=== PATIENT | female | born 1965 | race Caucasian/White ===

== ENCOUNTER 2022-09-29 19:32 | Emergency (ER) | payer OTHER, SELFPAY ==
[2022-09-29 19:50] VITALS: BP 135/91; PULSE 101; RESP 18; TEMP 36.7; O2SAT 99
--- NOTE | 2022-09-29 19:56 | ED.SKABFB ---
HPI - Skin/Abscess/Foreign Bdy General Chief complaint: Skin/Abscess/Foreign Body Stated complaint: sores in nose Time Seen by Provider: 09/29/22 19:51 Source: patient and RN notes reviewed Mode of arrival: ambulatory Limitations: no limitations History of Present Illness HPI narrative: Patient presents today complaining of sores inside her left nostril x1 month that have now spread to her lips. The sores in her nose are painful to touch. She does clean her nostril out in the mornings and has crusting drainage. She has been trying Neosporin without relief. Related Data Home Medications Medication Instructions Recorded Confirmed diazepam 10 mg tablet 10 mg PO DAILY 09/29/22 09/29/22 estradiol 1 mg tablet 1 mg PO DAILY 09/29/22 09/29/22 metoprolol succinate 25 mg 25 mg PO DAILY 09/29/22 09/29/22 tablet,extended release 24 hr progesterone micronized 200 mg 200 mg PO DAILY 09/29/22 09/29/22 capsule trazodone 100 mg tablet 100 mg PO HS PRN Sleep 09/29/22 09/29/22 Allergies Allergy/AdvReac Type Severity Reaction Status Date / Time No Known Allergies Allergy Unknown Verified 09/29/22 19:58 Review of Systems Review of Systems: CONSTITUTIONAL: Denies body aches, fever, chills, or sweats. EYES: Denies visual changes, redness, or discharge. ENT: Denies rhinorrhea, congestion, sore throat, or otalgia.+ sores in left nostril and around lips CARDIOVASCULAR: Denies chest pain, palpitations, or edema. RESPIRATORY: Denies cough or dyspnea. GASTROINTESTINAL: Denies abdominal pain, nausea, vomiting, or diarrhea. GENITOURINARY: Denies dysuria or hematuria. SKIN: Denies rash, itching, or wounds. MUSCULOSKELETAL: Denies back pain, joint pain, or myalgia. NEUROLOGIC: Denies headache, numbness, tingling, or weakness. PSYCH: Denies depression or anxiety. PMFSH Comments At time of signature, I have reviewed and agree with nursing past medical, surgical, social and family history unless otherwise noted. Please see nursing chart for further information. There is no relevant family history pertinent to the presenting complaint Exam Narrative: GENERAL: Well-appearing, well-nourished, and in no acute distress. HEAD: Normocephalic, atraumatic. EYES: EOMI. No redness or drainage. Conjunctivae normal. ENT: Mucous membranes pink and moist. Left nare: Multiple tiny pustules to the septum surrounded in erythema. No rhinorrhea. Few tiny pustules of the upper and lower vermilion border with erythematous bases. No induration or swelling of the lips noted. NECK: Normal AROM. CHEST: No respiratory distress. EXTREMITIES: Normal range of motion. No edema. SKIN: Warm, dry, no rash. Capillary refill normal. Normal skin turgor. NEURO: No focal deficits. Alert and oriented x3. Gait steady. PSYCH: Normal affect. No signs of depression or anxiety. Course Course Level of Care: Express Care Visit Vital Signs Vital signs: Vital Signs Temperature 98.0 F 09/29/22 19:50 Pulse Rate 101 H 09/29/22 19:50 Respiratory Rate 18 09/29/22 19:50 Blood Pressure 135/91 H 09/29/22 19:50 Pulse Oximetry 99 09/29/22 19:50 Oxygen Delivery Room Air 09/29/22 19:50 Temperature 98.0 F 09/29/22 19:50 Pulse Rate 101 H 09/29/22 19:50 Respiratory Rate 18 09/29/22 19:50 Blood Pressure 135/91 H 09/29/22 19:50 Pulse Oximetry 99 09/29/22 19:50 Oxygen Delivery Room Air 09/29/22 19:50 Reviewed. Pt has been instructed to follow up with her PCP regarding her elevated blood pressure today. MDM - Skin/Abscess/Foreign Bdy MDM Narrative Medical decision making narrative: Exam consistent with impetigo. Will treat with cephalexin and mupirocin ointment. Anticipatory guidance given. Differential Diagnosis Differential diagnosis: Likely abscess of skin or subcutaneous tissue, cellulitis and impetigo Critical Care Time Critical Care Time Critical Care Time: No Discharge Plan Discharge Clinical Impression: Impet
== END 2022-09-29 20:05 | disposition home or self-care (01) ==
PROVIDERS: Emergency Provider Nurse Practitioner
DX: L01.00 Impetigo, unspecified (principal); Z95.2 Presence of prosthetic heart valve
CPT/HCPCS: 99213; G0463

== ENCOUNTER 2025-01-11 02:27 | Day surgery (SDC) | payer OTHER, SELFPAY ==
[2025-01-01 12:21] VITALS: BMI 28.4
--- OUTSIDE RECORDS SUMMARY | 2025-01-11 02:30 | XMS_ITS | Clinical Summary ---
Author Organization [facility] Address [address] [facility] [place] [address] Phone Care Team Providers Care Hand Packager Name Role Phone Jose Adorno MD Primary Care Provider [phone] Allergies No known active allergies Medications conjugated estrogens (PREMARIN) 0.3 mg tablet Take 0.3 mg by mouth daily. Active progesterone micronized (PROMETRIUM) 100 mg Capsule Take by mouth daily. Active doxycycline hyclate (VIBRAMYCIN) 100 mg capsule Take 100 mg by mouth daily. Active traZODone (DESYREL) 100 mg tablet Take 100 mg by mouth daily at bedtime. Active cholecalciferol, vitamin D3, (Vitamin D3) 5,000 unit Take 400 Units by mouth daily. Active diazePAM (VALIUM) 10 mg tablet Take 10 mg by mouth 1 time daily as needed. As need only Active Active Problems No known active problems Family History Medical History Relation Name Comments No Known Problems Brother No Known Problems Father No Known Problems Mother Relation Name Status Comments Brother Alive Father Alive Mother Alive Social History Tobacco Use Types Packs/Day Years Used Date Smoking Tobacco: Never Smokeless Tobacco: Never Alcohol Use Standard Drinks/Week Comments Yes 0 (1 standard drink = 0.6 oz pur e alcohol) Comments Unknown Sex and Gender Information Value Date Recorded Sex Assigned at Not on file Legal Sex Female 12:42 PM CDT Gender Identity Not on file Sexual Orientation Not on file Last Filed Vital Signs Vital Sign Reading Time Taken Comments Blood Pressure 155/90 10/12/2019 9:45 AM CDT Pulse 68 10/12/2019 9:45 AM CDT Temperature 36.7 C (98.1 F) 10/02/2019 1:16 PM CDT Respiratory Rate - - Oxygen Saturation 97% 10/02/2019 1:16 PM CDT Inhaled Oxygen Concentration - - Weight 74.4 kg (164 lb) 10/12/2019 9:45 AM CDT Height 165.1 cm (5' 5) 10/12/2019 9:45 AM CDT Body Mass Index 27.29 10/12/2019 9:45 AM CDT Plan of Treatment Health Maintenance Due Date Last Done Comments DTAP/TDAP/TD VACCINES (1 - Tdap) 1983 HPV/Cotest (21-29) 1985 CERVICAL CANCER SCREENING 1994 HPV/Cotest (30-65) 1994 PAP SMEAR 1994 BREAST CANCER SCREENING 2004 COLORECTAL SCREENING 2009 Colorectal Cancer Screening 2009 FIT-DNA Q 3 years 2009 FIT/FOBT Q 1 year 2009 Flex Sig/CT Colonography Q 5 years 2009 ZOSTER VACCINE (1 of 2) 2014 Preventative Visit- Commercial 05/02/2024 INFLUENZA VACCINE (#1) 2024 RSV VACCINE (60+ or ) (1 - 1-dose 75+ series) 2039 HEPATITIS B VACCINES Aged Out No long er eligible based on patient's age to complete this topic Insurance [employer] OPEN ACCESS Care Teams Hand Packager Relationship Specialty Start Date End Date Jose Adorno MD [address] [place] [address] [address] [place] [address] PCP - General Interventional Cardiology 10/02/19
--- OUTSIDE RECORDS SUMMARY | 2025-01-11 02:30 | XMS_ITS | Clinical Summary ---
Author Organization [facility] Address [address] [place] [address] Care Team Providers Care Saxophone Assembler Name Role Phone Sabrina Ogden MD Unavailable [phone] Jose Manuel Perez Primary Care Provider [phone] Allergies No known active allergies Medications aspirin EC 81 MG tabletIndications: Anticoagulant Therapy Take 1 tablet (81 mg total) by mouth daily. Indications: Anticoagulant Therapy 11/11/19 20 Active metoprolol succinate ER (TOPROL XL) 25 MG 24 hr tabletIndications: Hypertension Take 1 tablet (25 mg total) by mouth daily. Indications: High Blood Pressure Hold for HR <60 11/11/19 20 Active progesterone (PROMETRIUM) 200 MG capsule Take 1 capsule (200 mg total) by mouth nightly at bedtime. 01/19/20 24 Active Ergocalciferol (VITAMIN D OR) Take 125 mcg by mouth daily. Active estradiol (ESTRACE) 1 MG tabletIndications: Postmenopausal TAKE 1 TABLET BY MOUTH EVERY DAY IN THE MORNING 90 tablet 10/12/19 25 Active traZODone (DESYREL) 100 MG tabletIndications: Primary insomnia TAKE 2 TABLETS BY MOUTH AT BEDTIME FOR SLEEP 180 tablet 10/27/19 25 Active omeprazole (PRILOSEC) 20 MG capsuleIndications :Gastroesophageal reflux disease, unspecified whether esophagitis present TAKE 2 CAPSULES BY MOUTH EVERY DAY 180 capsule 1 10/27/19 25 Active rosuvastatin (CRESTOR) 5 MG tabletIndications: Mixed hyperlipidemia Take 1 tablet (5 mg total) by mouth daily. 30 tablet 06/27/20 25 Active doxycycline hyclate (VIBRAMYCIN) 100 MG capsuleIndications :Acne vulgaris Take 1 capsule (100 mg total) by mouth daily. For acne breakouts 10 capsule 11/28/19 Active Active Problems Problem Noted Date Diagnosed Date Osteoarthritis of left knee 07/21/2023 Hypertension 11/01/2019 Aortic valve replaced 10/31/2019 Dyslipidemia 04/08/2017 Migraine with aura 01/26/2012 Resolved Problems Problem Noted Date Diagnosed Date Resolved Date Encounter for screening colonoscopy 07/25/2023 08/01/2023 Encounter for screening colonoscopy 07/25/2023 09/05/2023 Encounter for screening colonoscopy 07/25/2023 09/12/2023 Severe aortic stenosis 01/04/201403/01 Overview (03/01/2024): Added automatically from request for surgery [id number] Encounters Date Type Department Care Team Description 01/09/2025 Orders Only [address] [place] [address] Jose Manuel Perez FNP 01/04/[address] [address] Simon Akers MD Surgical Clearance ([facility] requesting cardiac clearance) 11/28/2024 12:20 PM CDT Office Visit [address] [place] [address] Jose Manuel Perez FNP Sinus Problem (Sinus and chest congestion started over the weekend, pt states yesterday she began not being able to taste or smell ); Sore Throat (Since the weekend ); Cough 11/28/2024 Travel 11/27/2024 Orders Only [address] [place] [address] Jose Manuel Perez FNP 11/26/[address] [place] [address] Jose Manuel Perez FNP Medication 10/29/2024 Scan [facility] Scanned, [facility] 10/26/2024 Telephone [facility] [address] [place] [address] Jose Manuel Perez FNP Medication Request 10/17/2024 Telephone [facility], [address] [address] Simon Akers MD Letter 10/11/2024 Telephone [facility] [address] [place] [address] Jose Manuel Perez FNP Results from Last 3 Months Immunizations Immunization Administration Dates Next Due Flucelvax 6 Months+ (Prefill ed Syringe) 03/16/2017 Influenza (Generic) 02/06/2024,02/13/2016,2014 Influenza Adult (Generic) 03/11/2023,10/2020,05/09/2020,2018,02/03/2018,03/16/2017 PFIZER COVID-19 (ORIGINAL FORMULATION, PURPLE CAP) mRNA, LNP-S, PF, 30 MCG/0.3 ML DOSE 07/01/2020 Tdap (Generic) 02/03/2018 Family History Medical History Relation Comments Heart Disease Father Hypertension Father Breast Cancer Mother incidental findi ng recently, pt is in their 80s Kidney Disease Mother Relation Status Comments Father Alive Mother Alive Social History Tobacco Use Types Packs/Day Years Used Date Smoking Tobacco: Never Smokeless Tobacco: Never Tobacco Cessation:Counseling Given: No Alcohol Use Standard Drinks/Week Comments Yes 0 (1 standard drink = 0.6 oz pur e alcohol) socially PHQ-2 Answer Date Recorded Patient Health Questionnaire-2 Score 0 07/12/2024 Comments No Sex and Gender Information Value Date Recorded Sex Assigned at Female 07/09/2024 12:02 PM CDT Legal Sex Female 2:16 AM CDT Gender Identity Not on file Sexual Orientation Not on file Last Filed Vital Signs Vital Sign Reading Time Taken Comments Blood Pressure 127/86 11/28/2024 12:16 PM CDT Pulse 84 11/28/2024 12:16 PM CDT Temperature 36.9 C (98.5 F) 11/28/2024 12:16 PM CDT Respiratory Rate 14 11/28/2024 12:16 PM CDT Oxygen Saturation 97% 11/28/2024 12:16 PM CDT Inhaled Oxygen Concentration - - Weight 78 kg (172 lb) 11/28/2024 12:16 PM CDT Height 162.6 cm (5' 4) 11/28/2024 12:16 PM CDT Body Mass Index 29.52 11/28/2024 12:16 PM CDT Plan of Treatment Upcoming Encounters Date Type Department Care Team (Late st Contact Info) Description 09/26/2025 11:15 AM CDT Office Visit [facility] [place] [address] Samir Maldonado, ANGELIKA [address] [id number] Health Maintenance Due Date Last Done Comments Pneumococcal Vaccine: 50+ Years (1 of 2 - PCV) 1983 Zoster Vaccines (1 of 2) 2014 RSV Immunization or 60+ Years (1 - Risk 60-74 years 1-dose series) 2024 COVID-19 Vaccine (4 - 2024-2 6 season) 2024 04/28/2021, 07/26/2020, 07/01/2020 Annual Physical 03/01/2025 03/01/2024 Mammogram Screening 07/09/2026 07/09/2024, 07/08/2023 DTaP, Tdap and Td Vaccines ( 2 - Td or Tdap) 02/04/2028 02/03/2018 Colorectal Cancer Screening Colonoscopy (10 Years) 09/06/2033 09/07/2023, 09/07/2023 Hepatitis C Completed 03/02/2024 PHQ-2 (Physician [place]) Completed 07/12/2024 Meningococcal B Vaccine Aged Out No l onger eligible based on patient's age to complete this topic Meningococcal Vaccine Aged Out No roula chavo eligible based on patient's age to complete this topic RSV Immunizations Under 20 Months Aged Out No longer eligible b ased on patient's age to complete this topic Procedures Procedure Name Priority Date/Time Associated Diagnosis Comments CORONAVIRUS (COVID-19) ANTIGEN Routine 11/28/2024 No sense of smell MG SCREENING W MACI JAQUELIN DIGI Routine 07/09/2024 12:21 PM CDT Encounter for screening mammogram for malignant neoplasm of breast HEPATITIS C ANTIBODY Routine 03/02/2024 7:20 AM CDT Need for hepatitis C screening test COLONOSCOPY Routine 09/07/2023 8:16 AM CDT from Last 3 Months or Most Recently Relevant to Health Maintenance Results * CORONAVIRUS (COVID-19) ANTIGEN (11/28/2024) CORONAVIRUS ANTIGEN IA NEGATIVE NEGATIVE [facility] ([facility]), [place] Internal Control: VALID VALID [facility] ([address]), [place] NASAL NASAL STRUCTURE / Unknown 11/28/2024 Jose Manuel Perez [employer] MICROBIOLOGY - GENERAL ORDERA BLES Final Result [facility] ([address]), [address] [place] [address], * MG SCREENING W MACI JAQUELIN DIGI (07/09/2024 12:21 PM CDT) Anatomical Region Laterality Modality Breast Bilateral Mammography 07/09/2024 12:2 5 PM CDT Impressions 07/09/2024 12:37 PM CDT ===== IMPRESSION: ===== 1. Stable mammographic appearance with no new findings to suggest malignancy in either breast. Assessment: ACR BI-RADS 2 - BENIGN FINDING(S) Recommendation: 1:Routine Screening Bilateral Comments: Ordered By: JOSE MANUEL PEREZ Interpreted By: Lorie Hunt, 07/09/2024 12:25 PM Narrative 07/09/2024 12:[address] PM [address]T [address] [place] [address] EXAMINATION: Digital bilateral screening mammogram with 3-D tomosynthesis EXAM DATE/TIME: 07/09/2024 12:14 PM REASON FOR EXAM: Routine screening Breast carcinoma in mother in her 80s. COMPARISON: 03/16/2022. 07/08/2023 Technique: Digital screening mammography of both breasts was performed in addition to 3-D Tomosynthesis technique. This study was read with the assistance of a computer-aided detection system. Tissue density: The breasts are heterogeneously dense, which may obscure small masses. Findings: There is no new focal asymmetry, dominant mass lesion, area of skin thickening, or cluster of suspicious appearing calcifications in either breast to suggest malignancy. Jose Manuel Perez [employer] [facility] Final Result * HEPATITIS C AB ([facility] ONLY) (03/02/2024 7:20 AM CDT) HEPATITIS C AB NON-REACTI VE NON-REACTI VE 03/02/2024 10:39 AM CDT [facility] 03/02/2024 7:20 AM CDT Jose Manuel Perez [facility] Final Result [facility] [address] [place] [address], from Last 3 Months or Most Recently Relevant to Health Maintenance Insurance R Advance Directives * Full Code (Latest Code Status on File) Date Activated Date Inactivated Comments 11/11/2019 10:28 AM 08/30/2023 12:07 PM Care Teams Saxophone Assembler Relationship Specialty Start Date End Date Jose Manuel Perez FNP [address] [place] [address] JEANIE Blue [address] PCP - General Nurse Practitioner Family 03/01/24 Sabrina Ogden MD [address] [place] [address] JEANIE SCHMIDT [address] FAMILY PRACTICE 07/17/20
--- OUTSIDE RECORDS SUMMARY | 2025-01-11 02:30 | XMS_ITS | Encounter Summary ---
Author Organization [facility] Address [address] [place] [address] Care Team Providers Care Oracle Hrms Developer Name Role Phone Sabrina Ogden MD Unavailable [phone] Gina Perez Primary Care Provider [phone] Encounter Details Date Type Department Care Team (Late Contact Info) Description 01/09/2025 Orders Only [facility] [address] [place] [id number] Gina Perez FNP [address] [place] [address] Social History Tobacco Use Types Packs/Day Years [...] on file Sexual Orientation Not on file documented as of this encounter Plan of Treatment Upcoming Encounters Date Type Department Care Team (Late Contact Info) Description 09/26/2025 11:15 AM CDT Office Visit [facility] [address] [place] [id number] Samir Maldonado, RIB STIFFENER AND HEEL DIPPER [address] [address] documented as of this encounter Visit Diagnoses Diagnosis Acne vulgaris Other acne documented in this encounter Care Teams Oracle Hrms Developer Relationship Specialty Start Date End Date Gina Perez FNP [address] [place] [address] [place] [address] PCP - General Nurse Practitioner Family 03/01/24 Sabrina Ogden MD [address] [place] [address] [place] [address] FAMILY PRACTICE 07/17/20 documented as of this encounter
--- OUTSIDE RECORDS SUMMARY | 2025-01-11 02:30 | XMS_ITS | Clinical Summary ---
Author Organization [facility] Address [address] [place] [address] Care Team Providers Care Door To Door Selling Distributor Name Role Phone Apolinar Jean MD PhD Unavailable Stephy Buckley NP Primary Care Provider [phone] Allergies No known active allergies Medications traZODone (DESYREL) 100 mg tablet Take 100 mg by mouth nightly Active aspirin 81 mg enteric coated tablet Take 1 tablet (81 mg total) by mouth daily 30 tablet 0 Active estrogens, conjugated, (PREMARIN) 1.25 mg tablet Premarin 1.25 mg tablet Active progesterone (PROMETRIUM) 100 mg capsule progesterone micronized 100 mg capsule Active metoprolol XL (TOPROL-XL) 25 mg extended release tablet TAKE 1 TABLET BY MOUTH DAILY. HOLD FOR HEART RATE LESS THAN 60. 90 tablet 0 Active cholecalciferol (VITAMIN D-3) 5,000 unit capsule Take 5,000 Units by mouth daily Active amoxicillin-cla vulanate (Augmentin) 875-125 mg per tablet Take 1 tablet by mouth 2 (two) times a day 20 tablet 2 Active diazePAM (VALIUM) 10 mg tablet Take 1 tablet (10 mg total) by mouth every 6 (six) hours as needed for anxiety 30 tablet 5 3 Active rosuvastatin (CRESTOR) 5 mg tablet TAKE 1 TABLET BY MOUTH ONCE DAILY APPOINTMENT REQUIRED FOR FUTURE REFILLS 7 tablet 4 Active Active Problems Problem Noted Date Diagnosed Date Acute blood loss anemia 11/04/2019 Assessment & Plan (11/04/2019 12:19 PM CDT): Expected post-op -HH stable -no active signs of bleeding Thrombocytopenia 11/04/2019 Assessment & Plan (11/04/2019 12:19 PM CDT): Expected post-op -PLT 103 -on SQH Acute post-operative pain 11/01/2019 Assessment & Plan (11/04/2019 12:16 PM CDT): Expected post-operative pain s/p AVR - APAP 1000mg q6 ru - oxy 10mg q4 prn - dilaudid 0.5mg q2 prn - pulling tubes today Assessment & Plan (11/02/2019 4:18 AM CDT): Expected post-operative pain s/p AVR - APAP 1000mg q6 ru - oxy 5mg q4 prn - dilaudid 0.5mg q2 prn Acute postoperative respiratory failure 11/01/19 20 Assessment & Plan (11/04/2019 12:16 PM CDT): On RA - resolved Encourage IS Assessment & Plan (11/02/2019 1:35 AM CDT): Pt extubated in OR. - Wean NC as tolerated - IS and OOB as tolerated - Aspiration precautions Hypertension 11/01/2019 Assessment & Plan (11/04/2019 12:16 PM CDT): Start metoprolol Assessment & Plan (11/01/2019 2:59 PM CDT): Post-op goal SBP<120 - Titrate nicardipine to goal Severe aortic stenosis 10/25/2019 Overview (10/25/2019): Added automatically from request for surgery [id number] Assessment & Plan (11/04/2019 12:18 PM CDT): S/p AVR with 25mm prosthetic valve. - ASA for anticoagulation s/p AVR - tolerating diet - SCDs for DVT ppx and SQH - PT/OT - start metoprolol - lasix 20mg po daily x 7 days - pull MCTs and wires today - CXR -discharge planning Assessment & Plan (11/02/2019 1:36 AM CDT): S/p AVR with 25mm prosthetic valve. Pre-op mean gradient 27 mmHg, intra-op post-replacement 4mmHg. - AV wires with VVI backup @70 - AP mediastinal CT to suction - nicardipine gtt for SBP goal <120 - ASA for anticoagulation s/p AVR, plan to start POD1 - Advance diet as tolerated - SCDs for DVT ppx, plan to start SQH POD 1 if PLT > 100 and no active bleeding - PT for decreased mobility - abx perioperatively post-op ancef/vanc Arthralgia of shoulder 10/20/2012 Paresis 08/16/2012 Cervicalgia 01/26/2012 Migraine with aura 01/26/2012 Immunizations Immunization Administration Dates Next Due Flucelvax Influenza Quad 03/16/2017 Influenza, Quadrivalent, Spl it, Preservative Free, Intramuscular 05/09/2020,04/06/2019,02/03/2018 Influenza, Trivalent, Preser vative Free, Intramuscular 02/13/2016,02/10/2015 Tdap 02/03/2018 Surgical History Surgery Date Site/Laterality Comments SD APPENDECTOMY Appendectomy - (Added by TW Conv) ANTERIOR CRUCIATE LIGAMENT REPAIR Primary Repair Of Knee Ligament Cruciate Anterior - (Added by TW Conv) NEUROPLASTY / TRANSPOSITION MEDIAN NERVE AT CARPAL TUNNEL Neuroplasty Decompression Median Nerve At Carpal Tunnel - (Added by TW Conv) ENDOMETRIAL ABLATION [facility] Thermal Endometrial Ablation - Dr. Kruger (Added by TW Conv) BICEPS TENODESIS 05/02/2012 - 05/01/2013 Left POD1 developed Honer's which lasted < 24 hrs SUPRASCAPULAR NERVE DECOMPRESSION 05/02/2012 - 05/01/2013 Left HYSTERECTOMY AUB CARDIAC VALVE REPLACEMENT 10/2019 Medical History Medical History Date Comments Cervicalgia Neck pain - s/p cervical facet injection October [address] 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 with some calcium build-up (Added by TW Conv) Migraine headache with aura Insomnia Family History Medical History Relation Name Comments Hyperlipidemia Father Hypertension Father No Known Problems Mother Bleeding Disorder Neg Hx Clotting disorder Neg Hx Heart attack Neg Hx Malig Hyperthermia Neg Hx Pseudochol deficiency Neg Hx Stroke Neg Hx Sudden Cardiac Neg Hx Relation Name Status Comments Father Alive Mother Alive Other 1 Other 2 Social History Tobacco Use Types Packs/Day Years Used Date Smoking Tobacco: Never Smokeless Tobacco: Never Tobacco Cessation:Counseling Given: Not Answered Alcohol Use Standard Drinks/Week Comments Yes 2 (1 standard drink = 0.6 oz pur e alcohol) a week PHQ-2 Answer Date Recorded PHQ-2 Total Score (If total score is 3 or more points, staff should administer the PHQ-9) 0 01/20/2022 Comments No Sex and Gender Information Value Date Recorded Sex Assigned at Not on file 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 Gender Identity Female 04/05/2022 12:13 PM PRE SALES TECHNICAL ENGINEER Sexual Orientation Not on file Obstetrics History Last Filed Vital Signs Vital Sign Reading Time Taken Comments Blood Pressure 130/88 01/20/2022 11:45 AM CDT Pulse 90 01/20/2022 11:45 AM CDT Temperature 36.8 C (98.3 F) 01/20/2022 11:45 AM CDT Respiratory Rate 18 01/20/2022 11:45 AM CDT Oxygen Saturation 98% 01/20/2022 11:45 AM CDT Inhaled Oxygen Concentration - - Weight 76.7 kg (169 lb) 01/20/2022 11:45 AM CDT Height 165.1 cm (5' 5) 01/20/2022 11:45 AM CDT Body Mass Index 28.12 01/20/2022 11:45 AM CDT Plan of Treatment Health Maintenance Due Date Last Done Comments Breast Cancer Screening-Mammogram 1965 Colon Cancer Screening-Colonoscopy 1965 Hepatitis C Screening 1964 Hepatitis B Screening 1982 Zoster Vaccine (1 of 2) 2014 Depression Screening 01/20/2023 01/20/2022 Regular Well Visit/Exam 18-64 01/20/2023 01/20/2022 Influenza Vaccine (#1) 2024 1, 04/06/2019, 02/03/2018, Additional history exists DTaP/Tdap/Td Vaccine (2 - Td or Tdap) 02/04/2028 02/03/2018 Pneumococcal vaccine <65 Aged Out No longer eligible based on patient's age to complete this topic Medical Devices Implanted Type Area Religious Educator Device Identifier Shelf Expiration Date Model / Serial / Lot [employer] [id number] 25mm Valve Aortic Latex Free 400 Series - [id number] - [id number] Implanted:Qty : 1 on 11/01/2019 by Apolinar Jean MD PhD at [facility] Prosthetic Valve N/A: Heart [employer] 12/06/2021 [id number] / [id number] / 0 Insurance [employer] [facility] [employer] HMO [facility] Advance Directives For more information, please contact: [phone] * Full Code (Latest Code Status on File) Date Activated Date Inactivated Comments 11/01/2019 12:51 PM 11/05/2019 4:35 PM * Full Code Date Activated Date Inactivated Comments 06/01/2019 3:41 PM 06/01/2019 10:33 PM Care Teams Door To Door Selling Distributor Relationship Specialty Start Date End Date Stephy Buckley NP [address] [address] PCP - General Family Medicine 01/06/22 Apolinar Jean MD PhD Surgeon Cardiothoracic Surgery 11/05/19
--- OUTSIDE RECORDS SUMMARY | 2025-01-11 02:30 | XMS_ITS | Clinical Summary ---
Author Organization [facility] [employer] Address [address] [place] [address] Care Team Providers Care Railway Yard Assistant Name Role Phone Sabrina Ogden MD Primary Care Provider [phone] Source Comments [facility],non-owned Affiliates and Associated Physician Practices is amultiple site organization consisting of ambulatory clinics and hospital sitesin [place], [place], [place] and [place]. This disclosure is being madepursuant to the Care Everywhere program and may not contain all information available regarding this patient. Last updated 18.[facility] Allergies No known active allergies Medications * Be aware that medications may not be up to date on this document. Alwaysverify current medications with the patient. 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 Gender Identity Not on file Sexual Orientation Not on file Plan of Treatment Health Maintenance Due Date Last Done Comments COLOGUARD (AGES 45-75) - COL ON CA SCREENING 1964 COLON MONITORING 1964 COLONOSCOPY - COLON CA SCREENING 1964 CT COLONOGRAPHY - COLON CA SCREENING 1965 Colorectal Cancer Screening 1964 FIT - COLON CA SCREENING 1964 FLEX SIG - COLON CA SCREENING 1964 LIPID TESTING 1964 MAMMOGRAM 1964 HIV SCREENING 1979 HEPATITIS C SCREENING 05/06/1982 DTAP/TDAP/TD VACCINES (1 - Tdap) 1983 PNEUMOCOCCAL VACCINE 50+ (1 of 1 - PCV) 2014 ZOSTER VACCINE (1 of 2) 2014 DEPRESSION SCREENING 05/02/2024 COVID-19 VACCINE (1 - 2023-2 5 season) 2024 INFLUENZA VACCINE (#1) 2024 Respiratory Syncytial Virus (RSV) Vaccine Pt: or over 60 yrs (1 - 1-dose 75+ series) 2039 HEPATITIS B VACCINE Aged Out No longe r eligible based on patient's age to complete this topic HIB VACCINE Aged Out No longer eligi ble based on patient's age to complete this topic HPV VACCINE Aged Out No longer eligi ble based on patient's age to complete this topic MENINGOCOCCAL (Group B) VACC INE SHARED DECISION-MAKING Aged Out No longer eligibl e based on patient's age to complete this topic MENINGOCOCCAL GROUPS A/C/Y/W VACCINE Aged Out No longer eligible b ased on patient's age to complete this topic Insurance [employer] Care Teams Railway Yard Assistant Relationship Specialty Start Date End Date Sabrina Ogden MD [address] [place] [address] PCP - General Family Medicine 01/22/16
[2025-01-11 11:11] VITALS: BP 137/91; PULSE 72; RESP 19; TEMP 36.6; O2SAT 98
[2025-01-11] MEDS: LACTATED RINGERS 1,000 ML 150 ML IV CONT (11:23)
--- NOTE | 2025-01-11 11:31 | SUR.PREOP ---
Per Dr. Schulz do not give antibiotics in pre-op for bovine aortic valve replacement.
--- NOTE | 2025-01-11 11:42 | PM.HPGS ---
History of Present Illness History of Present Illness Consent: Risks, benefits, and alternatives have been discussed and questions answered. Patient agrees to proceed with procedure. Chief complaint: Family history of malignant neoplasm of digestive Narrative: Marguerite De La Rosa is a 59 year old female here for first egd, h/o gerd controlled with ppi but brother had esophageal cancer Review of Systems Review of Systems: All systems reviewed & are unremarkable except as noted in HPI and below PMFSH Past Medical History Medical History (Updated 01/10/25 @ 15:46 by Chema Beach DO) Hypertension Hyperlipidemia Surgical History Surgical History (Updated 01/10/25 @ 15:46 by Chema Beach DO) History of hysterectomy S/P AVR Social History Social History Smoking status: Never smoker Alcohol intake: current Drinks per week: 6 Substance use: never Substance use type: does not use Living arrangements: with family Spiritual care concerns: No Meds Home Medications and Allergies Home Medications ?Medication ?Instructions ?Recorded ?Confirmed ?Type estradiol 1 mg tablet 1 mg PO DAILY 09/29/22 01/11/25 History metoprolol succinate 25 mg 25 mg PO DAILY 09/29/22 01/11/25 History tablet,extended release 24 hr progesterone micronized 200 mg 200 mg PO DAILY 09/29/22 01/11/25 History capsule trazodone 100 mg tablet 100 mg PO HS PRN Sleep 09/29/22 01/01/25 History omeprazole 40 mg capsule,delayed 40 mg PO DAILY 10/29/24 01/11/25 History release aspirin 81 mg tablet,delayed 81 mg PO DAILY 01/01/25 01/11/25 History release (Adult Aspirin Regimen) rosuvastatin 5 mg tablet 5 mg PO DAILY 01/01/25 01/11/25 History Allergies Allergy/AdvReac Type Severity Reaction Status Date / Time No Known Allergies Allergy Unknown Verified 01/11/25 11:07 Vital Signs Vital Signs - 24 hr 01/11/25 11:11 Temperature 97.9 F Pulse Rate 72 Respiratory Rate 19 Blood Pressure 137/91 H Pulse Oximetry 98 Oxygen Delivery Room Air Exam Const: General: comfortable and no acute distress HENMT: Face/Nose/Sinus: Normal nares present Eyes: General: appearance normal, both eyes and all related structures Neck: Neck: no JVD Resp: Auscultation: clear to auscultation bilaterally Cardio: Rate: regular rate Rhythm: regular rhythm GI: Inspection: non-distended GI Palp: Yes Soft to palpation Skin: General skin exam: normal color Neuro: Speech: normal speech Extrem: General: normal to inspection Psych: Mental Status: mental status grossly normal Assessment and Plan Assessment and plan (1) GERD (gastroesophageal reflux disease): Qualifiers: Esophagitis presence: esophagitis presence not specified Qualified Code(s): K21.9 - Gastro-esophageal reflux disease without esophagitis Code(s): K21.9 - Gastro-esophageal reflux disease without esophagitis Status: Acute Assessment and Plan: egd (2) Family history of esophageal cancer: Code(s): Z80.0 - Family history of malignant neoplasm of digestive organs Status: Acute
--- NOTE | 2025-01-11 11:46 | S_PTH ---
PATIENT: Marguerite De La Rosa LOC: [facility]#:[id number] AGE/SX: 59/F ROOM: RE01/11/[address]: Willian Dangelo MD : 1965 BED: DIS: 01/11/2025 SPEC #: [id number] RECD: 01/11/25 13:21 STATUS: LANDY REArsalan #: [id number] ELIZABETH: 01/11/25 11:[address]: Willian Dangelo DEPT: [facility] Surgical RECD BY: Diane Miles ENTERED: 01/11/25 13:21 SP TYPE: Surgical OTHR DR: Gina Perez, DIRECTOR OF PLACEMENT-C Tissues: A - Gastric Biopsy Procedures: Hematoxylin and Eosin Stain Gross and Microscopic Level 4
[2025-01-11 11:48] VITALS: BP 151/88; PULSE 74; RESP 15; O2SAT 95
[2025-01-11 11:58] VITALS: BP 128/83; PULSE 69; RESP 23; O2SAT 100
[2025-01-11 12:08] VITALS: BP 137/88; PULSE 66; RESP 17; O2SAT 100
== END 2025-01-11 12:20 | disposition home or self-care (01) ==
PROVIDERS: PCP Nurse Practitioner; Referring Provider Nurse Practitioner Family; Visit Provider Internal Medicine Gastroenterology
PROC: 0DJ08ZZ Inspection of Upper Intestinal Tract, Via Natural or Artificial Opening Endoscopic (ICD-10-PCS; CPT 43239; principal; 2025-01-11 12:30)
DX: K21.9 Gastro-esophageal reflux disease without esophagitis (principal); E78.5 Hyperlipidemia, unspecified; I10 Essential (primary) hypertension; Z79.82 Long term (current) use of aspirin; Z98.890 Other specified postprocedural states; Z80.0 Family history of malignant neoplasm of digestive organs
CPT/HCPCS: 43239; 88305; J2704; J7120